=== PATIENT | male | born 2005 | race Caucasian/White ===

== ENCOUNTER 2024-05-03 21:19 | Emergency (ER) | payer SELFPAY ==
[~2024-05-03] VITALS: Ht 175.3 cm; Wt 63.6 kg
[2024-05-03 21:36] VITALS: TEMP 100
[2024-05-03 22:05] LABS: BASO % 0.1 % (0.0-2.0); EOS # 0.1 K/mm3 (0.0-0.7); EOS % 1.9 % (0.0-4.0); GRAN # 4.3 K/mm3 (1.4-6.5); GRAN % 61.6 % (42.2-75.2); HEMATOCRIT 42.5 % (36.0-47.0); HEMOGLOBIN 14.4 g/dl (12.5-16.1); LYMPH # 1.7 K/mm3 (1.2-3.4); LYMPH % 25.1 % (20.0-51.0); MEAN CELL VOLUME 84 fl (80.0-95.0); MEAN CORPUSCULAR HEMOGLOBIN 29 pg (26-32); MEAN CORPUSCULAR HGB CONC 34 g/dl (33.0-37.0); MEAN PLATELET VOLUME 9.7 fl (7.4-10.4); MONO # 0.8 K/mm3 (0.1-0.6); MONO % 11.2 % (1.7-9.3); PLATELET COUNT 210 K/mm3 (130-400); RED BLOOD COUNT 5.05 M/mm3 (4.20-5.60)
[2024-05-03 22:13] LABS: INR 1.2 (0.8-3.0); PROTHROMBIN TIME 13.5 SECONDS (9.7-12.8)
[2024-05-03 22:16] LABS: PARTIAL THROMBOPLASTIN TIME 32.7 SECONDS (26.0-37.0)
[2024-05-03 22:24] LABS: ALBUMIN 4.3 g/dL (3.5-5.0); BILIRUBIN,TOTAL 0.6 mg/dL (0.2-1.2); C-REACTIVE PROTEIN 1.67 mg/dL (0.00-0.50); CALCIUM 9.1 mg/dL (8.4-10.2); CREATININE, serum 0.76 mg/dL (0.72-1.25); POTASSIUM 3.7 mEq/L (3.5-4.5); TOTAL PROTEIN 7.8 g/dl (6.2-8.1)
[2024-05-03 23:39] VITALS: BP 128/71; PULSE 55
== END 2024-05-03 23:39 | disposition home or self-care (01) ==
LOC: COL.ER 21:19
PROVIDERS: Emergency Medicine
DX: T63.001A Toxic effect of unspecified snake venom, accidental (unintentional), initial encounter (principal)